=== PATIENT | male | born 1995 | race Caucasian/White ===

== ENCOUNTER 2020-08-09 18:21 | Emergency (ER) | payer BC, SELFPAY ==
[~2020-08-09] VITALS: Ht 180.3 cm; Wt 61.2 kg
[2020-08-09 18:23] VITALS: Ht 180.3 cm; Wt 61.2 kg
[2020-08-09 19:26] LABS: BASOPHIL % 0.3 % (0-2); PLATELET COUNT 318 x10^3mcL (130-400); RED CELL DISTRIBUTION WIDTH 12.7 % (11.5-14.5)
[2020-08-09 19:46] LABS: ALKALINE PHOSPHATASE 95 U/L (46-116); ALT/SGPT 19 U/L (16-63); AST/SGOT 25 U/L (15-37); CARBON DIOXIDE 22.6 mmol/L (21-32); CHLORIDE SERUM 103 mmol/L (98-107); GFR1 > 60 mL/min; GLUCOSE SERUM 111 mg/dL (74-106); POTASSIUM SERUM 3.4 mmol/L (3.5-5.1); SODIUM SERUM 139 mmol/L (136-145)
[2020-08-09 19:47] LABS: ALBUMIN 5.3 g/dL (3.4-5.0); TOTAL PROTEIN, SERUM 8.6 g/dL (6.4-8.2)
[2020-08-09 20:55] VITALS: BP 120/79
== END 2020-08-09 20:55 | disposition home or self-care (01) ==
LOC: ED 18:21
PROVIDERS: Emergency Medicine
DX: F41.9 Anxiety disorder, unspecified (principal); R42 Dizziness and giddiness; Z20.828 Contact with and (suspected) exposure to other viral communicable diseases
CPT/HCPCS: J2765; J7030; J8597; U0003